=== PATIENT | female | born 1995 | race Caucasian/White ===

== ENCOUNTER 2019-02-26 15:40 | Emergency (ER) | payer MEDICAID, OTHER ==
[~2019-02-26] VITALS: Ht 167.6 cm; Wt 62.2 kg
[~2019-02-26 15:40] MED LIST: PREN-39 PO
[2019-02-26 15:58] VITALS: Ht 167.6 cm; Wt 62.2 kg
[2019-02-26] MEDS ORDERED: ACETAMINOPHEN 500 MG TAB PO STA (20:31)
[2019-02-26] MEDS ORDERED: IBUPROFEN 800 MG TAB PO ONE (21:00)
--- NOTE | 2019-02-26 22:18 | ERD ---
ER Documentation Chief Complaint Chief Complaint body aches, WINTER, fever, swollen eyes X 1 day HPI This is a 24-year-old female who presents ED with low back pain and fever times 1 day. Admits to headache. Patient admits to having similar symptoms in the past when she was diagnosed with a kidney infection. Patient denies dysuria, hematuria, melena, hematochezia, hematemesis, nausea, vomiting, diarrhea, constipation, abdominal pain and all other symptoms. ROS All systems reviewed and are negative except as per history of present illness. Medications Home Meds Reported Medications Vits W-Ca,Fe,Fa(<1MG) ( Vitamins) 1 Tab Tablet, 1 TAB PO DAILY 07/16/14 Allergies Allergies: Coded Allergies: No Known Allergy (Unverified , 02/26/19) PMhx/Soc Medical and Surgical Hx: pt denies Medical Hx, pt denies Surgical Hx History of Surgery: Yes Anesthesia Reaction: No Hx Neurological Disorder: No Hx Respiratory Disorders: No Hx Cardiac Disorders: No Hx Psychiatric Problems: No Hx Miscellaneous Medical Probl: No Hx Alcohol Use: No Hx Substance Use: No Hx Tobacco Use: No Smoking Status: Never smoker Physical Exam Vitals Vital Signs Date Temp Pulse Resp B/P (MAP) Pulse Ox O2 O2 Flow FiO2 Time Delivery Rate 02/26/19 101.4 104 18 106/64 100 15:58 (78) Physical Exam Physical Exam Vitals signs: Reviewed by me. General: Well developed, well nourished, in no acute distress. Patient is awake and alert. Head: Normocephalic, atraumatic. Eyes: Normal conjunctiva, Pupils PERRLA, EOM intact grossly ENT: Pharynx is clear, Moist mucous membranes, external ears, nose and mouth normal Neck: Supple, no masses, lymphadenopathy or JVD Respiratory: Clear to auscultation bilaterally with no wheezing, rhonchi, rales, no distress Cardiovascular: RRR, no murmurs, rubs, or gallops Abdominal: Soft, nondistended, no peritoneal signs, no rigidity, no surgical abdomen, bowel sounds present all 4 quadrants, mild tenderness palpation in suprapubic region, nontender to palpation all other areas, McBurney's point nontender, no rebound tenderness, Dumont sign negative Back: No midline tenderness. No flank tenderness Neurologic: Alert and oriented, moving all extremities, normal speech, no focal weakness, no cerebellar signs. Normal mentation Skin: warm and dry, No rash Psych: Normal mood Results 24 hrs Laboratory Tests Test 02/26/19 20:40 02/26/19 20:46 02/26/19 22:25 Urine Color YELLOW Urine Clarity SLIGHTLY CLOUDY Urine pH 6.0 Urine Specific [place] 1.013 Urine Ketones 2+ mg/dL Urine Nitrite NEGATIVE mg/dL Urine Bilirubin NEGATIVE mg/dL Urine Urobilinogen NEGATIVE mg/dL Urine Leukocyte Esterase NEGATIVE Melody/ul Urine Microscopic RBC 2 /HPF Urine Microscopic WBC 1 /HPF Urine Squamous Epithelial Cells FEW /HPF Urine Mucus FEW /HPF Urine Hemoglobin 2+ mg/dL Urine Glucose NEGATIVE mg/dL Urine Total Protein NEGATIVE mg/dl POC Beta HCG, Qualitative NEGATIVE Bedside Urine pH (LAB) 6.0 Bedside Urine Protein (LAB) Negative Bedside Urine Glucose (UA) Negative Bedside Urine Ketones (LAB) 4+ Bedside Urine Blood 2+ Bedside Urine Nitrite (LAB) Negative Bedside Urine Leukocyte Esterase (L Negative Current Medications Medications Dose Sig/Lea Start Time Status Last (Trade) Ordered Route PRN Stop Time Admin Dose Reason Admin 1,000 mg ONCE STAT 02/26/19 DC 02/26/19 Acetaminophen PO 20:31 02/26/19 20:41 (Tylenol 20:33 Tab) Ibuprofen 800 mg ONCE ONCE 02/26/19 DC 02/26/19 (Motrin) PO 21:00 02/26/19 20:41 21:01 Procedures/MDM LAB INTERPRETATION: Flu negative Urine negative Urinalysis shows 1 WBC, 2 RBCs, 2+ blood ER COURSE: The patient was given Tylenol Motrin The medication was well tolerated and the patient reports improvement in symptoms. The patient was stable throughout ED course. I kept the patient and/or family informed of laboratory and diagnostic imaging results throughout the emergency room course. The patient was promptly evaluated and a treatment plan was devised based on H&P and other data. This plan was discussed with the patient who agreed and had no further questions or concerns prior to discharge. MEDICAL DECISION MAKING: This is a 24-year-old female who presents ED with low back pain and fever times 1 day. Admits to headache. Patient admits to having similar symptoms in the past when she was diagnosed with a kidney infection. On physical examination patient indeed does have some suprapubic tenderness. Urinalysis shows 2+ blood, but is otherwise unremarkable. Given patient's history we will treat her for pyelonephritis. At this time there is no genitourinary emergency. No evidence of obstructive pyelonephritis, septic stone, sepsis, meningitis, pneumonia, mikaela endicitis, perforated viscus, small bowel obstruction, cholecystitis, pancreatitis, among others. Vitals are stable patient can be managed with close outpatient follow-up. Advised patient follow-up with primary care in the next 48 hours. Return to ED with any worsening symptoms. Will order for urine culture. DISPOSITION PLAN: We discussed follow up with the patient's primary care doctor within 24 to 48 hours. Patient counseled regarding my diagnostic impression and care plan. Prior to discharge all questions answered. Pt agrees with treatment plan and understands strict return precautions. Precautionary instructions provided including instructions to return to the ER if not improving or for any worsening or changing symptoms or concerns. SPECIALIST FOLLOW UP RECOMMENDED: None Patient has been advised to follow up with primary care in 1-2 days. Disclaimer: Inadvertent spelling and grammatical errors are likely due to EHR/dictation software use and do not reflect on the overall quality of patient care. Also, please note that the electronic time recorded on this note does not necessarily reflect the actual time of the patient encounter. Departure Diagnosis: Primary Impression: Pyelonephritis Additional Impressions: Back pain Back pain location: back pain in unspecified location Chronicity: acute Back pain laterality: unspecified Qualified Codes: M54.9 - Dorsalgia, unspecified Fever Fever type: unspecified Qualified Codes: R50.9 - Fever, unspecified Condition: Stable Patient Instructions: Back Pain (Acute Or Chronic), Fever Control (Adult), Pyelonephritis, Female (Adult) Referrals: [facility] Additional Instructions: Patient advised to return to the ED immediately for new or worsening symptoms. Patient advised to follow up with primary care provider in the next 24-48 hours. Patient verbalized understanding and agrees with treatment plan and course of action. If patient has no primary care they may follow up with one of the community clinics listed on the following page or one of the options listed below [facility] + [facility] [address] [place] [id number] or [facility] [address] [place] [address] [address] SAMSON GLASGOW PA-C, Apr 4, 2019 22:18
[2019-02-26] MEDS ORDERED: CIPR500T4 PO (22:42)
[2019-02-26] MEDS ORDERED: HYDR-4011 PO (22:43)
[2019-02-26 22:51] VITALS: BP 100/62; PULSE 70; RESP 18
== END 2019-02-26 22:53 | disposition home or self-care (01) ==
LOC: FTE 15:40
DX: N12 Tubulo-interstitial nephritis, not specified as acute or chronic (principal); M54.5 Low back pain
CPT/HCPCS: 81001; 81025; 87086; 87400; Z7502; Z7610; 81003; 99283